=== PATIENT | female | born 1985 | race Caucasian/White ===

== ENCOUNTER 2017-04-18 16:39 | Emergency (ER) | payer MEDICAID ==
[~2017-04-18] VITALS: Ht 162.6 cm; Wt 121.8 kg
[~2017-04-18 16:39] MED LIST: DIAZ5TAB PO; HYDR-565 PO; KETO10TA2 PO; OXYC-145 PO; PHEN-716 PO
[2017-04-18] MEDS ORDERED: LEVO500T2 PO (20:30)
[2017-04-18] MEDS ORDERED: levoFLOXACIN 750MG TABLET PO ONE (20:30)
[2017-04-18 20:38] VITALS: BP 126/74
== END 2017-04-18 20:39 | disposition home or self-care (01) ==
LOC: ER 16:40
DX: J18.9 Pneumonia, unspecified organism (principal); G43.909 Migraine, unspecified, not intractable, without status migrainosus; F12.10 Cannabis abuse, uncomplicated; Z87.442 Personal history of urinary calculi; Z90.49 Acquired absence of other specified parts of digestive tract; Z88.1 Allergy status to other antibiotic agents; Z91.040 Latex allergy status; Z79.899 Other long term (current) drug therapy
CPT/HCPCS: 71045; 99283

== ENCOUNTER 2018-05-15 14:35 | Outpatient (CLI) | payer MEDICAID ==
[~2018-05-15 14:35] MED LIST changes: +HYDR-4353 PO; -HYDR-565 PO
== END 2018-05-15 23:59 | disposition home or self-care (01) ==
LOC: RAD 14:35
PROVIDERS: ATTEND Physician Assistant
DX: R55 Syncope and collapse (principal)
CPT/HCPCS: 95816

== ENCOUNTER 2018-08-18 01:32 | Emergency (ER) | payer MEDICAID ==
[~2018-08-18] VITALS: Ht 162.6 cm; Wt 80.9 kg
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
[2018-08-18] MEDS ORDERED: iohexol 350MG/ML 100ml bottle IV ONE (02:30)
[2018-08-18] MEDS ORDERED: LORazepam 2 mg/ml vial IV ONE (02:35)
[2018-08-18] MEDS ORDERED: baclofen 10mg tablet PO PRN (04:30)
[2018-08-18] MEDS ORDERED: AMOX500C2 PO (04:37)
[2018-08-18 04:42] VITALS: BP 119/77
== END 2018-08-18 04:55 | disposition home or self-care (01) ==
LOC: ER 01:33
DX: K04.7 Periapical abscess without sinus (principal); M54.2 Cervicalgia; R49.0 Dysphonia; Y04.2XXA Assault by strike against or bumped into by another person, initial encounter; Y93.89 Activity, other specified; Y92.89 Other specified places as the place of occurrence of the external cause; Y99.8 Other external cause status
CPT/HCPCS: 70450; 70498; 96374; 99284; J2060; Q9967

== ENCOUNTER 2018-08-24 20:39 | Emergency (ER) | payer MEDICAID ==
[~2018-08-24] VITALS: Ht 162.6 cm; Wt 79.1 kg
[~2018-08-24 20:39] MED LIST changes: +AMOX500C2 PO
[2018-08-24 21:28] LABS: BASOPHILS # (AUTO) 0.1 X10'3 (0-0.2); BASOPHILS % (AUTO) 0.5 % (0-1); EOSINOPHILS # (AUTO) 0.1 X10'3 (0-0.9); EOSINOPHILS % (AUTO) 1.1 % (0-6); HEMATOCRIT 36.7 % (35.0-45.0); HEMOGLOBIN 12.5 g/dl (12.0-16.0); LYMPHOCYTES # (AUTO) 4.1 X10'3 (1.1-4.8); LYMPHOCYTES % (AUTO) 38.8 % (21-51); MEAN CORPUSCULAR HEMOGLOBIN 29.4 PG (27.0-31.0); MEAN CORPUSCULAR HGB CONC 34.1 g/dL (33.0-36.5); MEAN CORPUSCULAR VOLUME 86.2 FL (78-98); MEAN PLATELET VOLUME 9.1 FL (7.4-10.4); MONOCYTES # (AUTO) 0.9 X10'3 (0-0.9); MONOCYTES % (AUTO) 8.3 % (2-12); NEUTROPHILS # (AUTO) 5.4 X10'3 (1.8-7.7); NEUTROPHILS % (AUTO) 51.3 % (42-75); PLATELET COUNT 325 X10'3 (140-440); RED BLOOD COUNT 4.26 X10'6 (4.20-5.60); RED CELL DISTRIBUTION WIDTH 13.5 % (11.5-14.5); WHITE BLOOD COUNT 10.6 X10'3 (4.5-11.0)
[2018-08-24] MEDS ORDERED: normal saline 1000ML IV soln IVB ONE (21:45)
[2018-08-24 21:47] LABS: ALANINE AMINOTRANSFERASE 23 U/L (12-78); ALBUMIN/GLOBULIN RATIO 1.1 (1.1-1.5); ALKALINE PHOSPHATASE 67 IU/L (46-116); ANION GAP 8 (8-16); ASPARTATE AMINO TRANSFERASE 10 U/L (10-37); BILIRUBIN,TOTAL 0.4 MG/DL (0.1-1.0); BLOOD UREA NITROGEN 11 MG/DL (7-18); BUN/CREATININE RATIO 15.5 (6.6-38.0); CALCIUM 9.6 MG/DL (8.5-10.1); CHLORIDE 104 MMOL/L (99-107); CREATININE 0.71 MG/DL (0.40-0.90); GLUCOSE 89 MG/DL (70-104); MAGNESIUM 1.8 MG/DL (1.5-2.4); POTASSIUM 3.6 MMOL/L (3.5-5.1); SODIUM 138 MMOL/L (135-145); TOTAL CARBON DIOXIDE 26.2 MMOL/L (24-32); TOTAL PROTEIN 7.5 G/DL (6.4-8.2); eGFR > 90 ML/MIN
--- NOTE | 2018-08-24 22:27 | NUR ---
LITER #2 STARTED. PT NAD. MOM AT BS.
--- NOTE | 2018-08-24 22:28 | NUR ---
GAVE HER ICE WATER TO DRINK FOR PO CHALLENGE.
[2018-08-24 23:06] VITALS: BP 130/73
[2018-08-24] MEDS ORDERED: VANC250C12 PO (23:16)
== END 2018-08-24 23:28 | disposition home or self-care (01) ==
LOC: ER 20:40
DX: E86.0 Dehydration (principal); G43.909 Migraine, unspecified, not intractable, without status migrainosus; F12.90 Cannabis use, unspecified, uncomplicated; Z91.040 Latex allergy status; Z88.1 Allergy status to other antibiotic agents; Z79.2 Long term (current) use of antibiotics; Z79.899 Other long term (current) drug therapy; Z87.442 Personal history of urinary calculi; Z90.49 Acquired absence of other specified parts of digestive tract; Z98.890 Other specified postprocedural states
CPT/HCPCS: 36415; 71045; 80053; 83735; 83880; 84484; 85025; 93005; 96360; 99284; J7030

== ENCOUNTER 2019-12-30 17:37 | Emergency (ER) | payer MEDICAID ==
[~2019-12-30] VITALS: Ht 162.6 cm; Wt 90.4 kg
[~2019-12-30 17:37] MED LIST changes: -AMOX500C2 PO; -DIAZ5TAB PO; -HYDR-4353 PO; -KETO10TA2 PO; -OXYC-145 PO; -PHEN-716 PO; +VANC250C12 PO
[2019-12-30 17:49] VITALS: BP 107/66
[2019-12-30] MEDS ORDERED: CLIN-15 PO (19:03)
[2019-12-30] MEDS ORDERED: IBUP-1984 PO (19:03)
== END 2019-12-30 19:12 | disposition home or self-care (01) ==
LOC: ER 17:38
DX: K04.7 Periapical abscess without sinus (principal); J32.0 Chronic maxillary sinusitis; G43.909 Migraine, unspecified, not intractable, without status migrainosus; F12.90 Cannabis use, unspecified, uncomplicated; Z90.49 Acquired absence of other specified parts of digestive tract; Z98.61 Coronary angioplasty status; Z90.89 Acquired absence of other organs; Z98.890 Other specified postprocedural states; Z72.89 Other problems related to lifestyle; Z79.2 Long term (current) use of antibiotics; Z88.8 Allergy status to other drugs, medicaments and biological substances; Z79.899 Other long term (current) drug therapy
CPT/HCPCS: 99283

== ENCOUNTER 2020-03-11 11:36 | Emergency (ER) | payer MEDICAID ==
[~2020-03-11] VITALS: Ht 162.6 cm; Wt 93.0 kg
[2020-03-11 11:41] VITALS: BP 128/51
[2020-03-11] MEDS ORDERED: PRED20TA PO (12:26)
[2020-03-11] MEDS ORDERED: FAMO20TA47 PO (12:26)
== END 2020-03-11 12:45 | disposition home or self-care (01) ==
LOC: ER 11:37
DX: L23.9 Allergic contact dermatitis, unspecified cause (principal); G43.909 Migraine, unspecified, not intractable, without status migrainosus; F12.90 Cannabis use, unspecified, uncomplicated; Z87.442 Personal history of urinary calculi; Z90.89 Acquired absence of other organs; Z90.49 Acquired absence of other specified parts of digestive tract; Z98.890 Other specified postprocedural states; Z98.51 Tubal ligation status; Z72.89 Other problems related to lifestyle; Z88.1 Allergy status to other antibiotic agents; Z91.040 Latex allergy status; Z79.2 Long term (current) use of antibiotics; Z79.899 Other long term (current) drug therapy
CPT/HCPCS: 99283

== ENCOUNTER 2020-08-12 16:06 | Emergency (ER) | payer MEDICAID ==
[~2020-08-12] VITALS: Ht 165.1 cm; Wt 97.1 kg
[~2020-08-12 16:06] MED LIST changes: +FAMO20TA47 PO
[2020-08-12] MEDS ORDERED: CEPH-585 PO (17:51)
[2020-08-12 17:53] VITALS: BP 101/65
== END 2020-08-12 17:54 | disposition home or self-care (01) ==
LOC: ER 16:06
DX: L73.9 Follicular disorder, unspecified (principal); G43.909 Migraine, unspecified, not intractable, without status migrainosus; F12.90 Cannabis use, unspecified, uncomplicated; Z87.442 Personal history of urinary calculi; Z90.49 Acquired absence of other specified parts of digestive tract; Z98.890 Other specified postprocedural states; Z90.89 Acquired absence of other organs; Z98.51 Tubal ligation status; Z72.89 Other problems related to lifestyle; Z88.1 Allergy status to other antibiotic agents; Z91.040 Latex allergy status; Z79.899 Other long term (current) drug therapy
CPT/HCPCS: 99283

== ENCOUNTER 2024-02-25 16:18 | Emergency (ER) | payer MEDICAID ==
[~2024-02-25] VITALS: Ht 165.1 cm; Wt 118.2 kg
[2024-02-25 16:19] VITALS: BP 146/89; PULSE 67; TEMP 97.5; O2SAT 99
[2024-02-25] MEDS ORDERED: CEPH-585 PO (17:46)
[2024-02-25] MEDS: cephalexin 250mg capsule PO ONE (18:08)
[2024-02-25 18:15] VITALS: RESP 18
== END 2024-02-25 18:16 | disposition home or self-care (01) ==
LOC: ER 16:18
DX: S61.215A Laceration without foreign body of left ring finger without damage to nail, initial encounter (principal); L03.012 Cellulitis of left finger; F12.90 Cannabis use, unspecified, uncomplicated; Z91.041 Radiographic dye allergy status; Z91.040 Latex allergy status; Z90.49 Acquired absence of other specified parts of digestive tract; Z90.89 Acquired absence of other organs; Z98.51 Tubal ligation status; Z98.84 Bariatric surgery status; W45.8XXA Other foreign body or object entering through skin, initial encounter; Y93.89 Activity, other specified; Y92.89 Other specified places as the place of occurrence of the external cause; Y99.8 Other external cause status
CPT/HCPCS: 99283

== ENCOUNTER 2024-05-12 16:30 | Outpatient (CLI) | payer BC, MEDICAID ==
[~2024-05-12 16:30] MED LIST changes: +CEPH-585 PO
[2024-05-12 16:50] LABS: BASOPHILS # (AUTO) 0.1 X10'3 (0-0.2); BASOPHILS % (AUTO) 0.9 % (0-1); EOSINOPHILS # (AUTO) 0.2 X10'3 (0-0.9); HEMATOCRIT 39.8 % (35.0-45.0); LYMPHOCYTES # (AUTO) 3.2 X10'3 (1.1-4.8); LYMPHOCYTES % (AUTO) 39.4 % (21-51); MEAN CORPUSCULAR HEMOGLOBIN 29.4 PG (27.0-31.0); MEAN CORPUSCULAR HGB CONC 32.7 g/dL (33.0-36.5); MEAN CORPUSCULAR VOLUME 89.9 FL (78-98); MEAN PLATELET VOLUME 8.8 FL (7.4-10.4); MONOCYTES # (AUTO) 0.6 X10'3 (0-0.9); MONOCYTES % (AUTO) 7.1 % (2-12); NEUTROPHILS % (AUTO) 49.6 % (42-75); PLATELET COUNT 309 X10'3 (140-440); RED BLOOD COUNT 4.43 X10'6 (4.20-5.60); RED CELL DISTRIBUTION WIDTH 13.9 % (11.5-14.5); WHITE BLOOD COUNT 8.1 X10'3 (4.5-11.0)
== END 2024-05-12 23:59 | disposition home or self-care (01) ==
LOC: RAD 16:30
PROVIDERS: ATTEND Specialist
DX: N93.8 Other specified abnormal uterine and vaginal bleeding (principal)
CPT/HCPCS: 36415; 85025

== ENCOUNTER 2024-06-01 10:11 | Day surgery (SDC) | payer BC, MEDICAID ==
[2024-05-25 10:10] LABS: BASOPHILS # (AUTO) 0.1 X10'3 (0-0.2); BASOPHILS % (AUTO) 1.9 % (0-1); EOSINOPHILS # (AUTO) 0.2 X10'3 (0-0.9); EOSINOPHILS % (AUTO) 2.8 % (0-6); LYMPHOCYTES # (AUTO) 2.4 X10'3 (1.1-4.8); LYMPHOCYTES % (AUTO) 33.2 % (21-51); MEAN CORPUSCULAR HGB CONC 33.4 g/dL (33.0-36.5); MEAN CORPUSCULAR VOLUME 89.9 FL (78-98); MEAN PLATELET VOLUME 8.7 FL (7.4-10.4); MONOCYTES # (AUTO) 0.6 X10'3 (0-0.9); MONOCYTES % (AUTO) 8.7 % (2-12); NEUTROPHILS # (AUTO) 3.8 X10'3 (1.8-7.7); NEUTROPHILS % (AUTO) 53.4 % (42-75); PRE OP HEMATOCRIT 39.6 % (35.0-45.0); PRE OP HEMOGLOBIN 13.2 g/dL (12.0-16.0); PRE OP PLATELET COUNT 337 X10'3 (140-440); PRE OP WHITE BLOOD COUNT 7.1 10'3 (4.8-10.8)
[2024-05-25 10:32] LABS: ALBUMIN 3.5 G/DL (3.4-5.0); ALKALINE PHOSPHATASE 72 IU/L (46-116); BLOOD UREA NITROGEN 9 MG/DL (7-18); BUN/CREATININE RATIO 14.3 (10.0-20.0); CALCIUM 8.9 MG/DL (8.5-10.1); CHLORIDE 107 MMOL/L (99-107); CREATININE 0.63 MG/DL (0.40-0.90); PRE OP ALT 31 U/L (30-65); PRE OP ANION GAP 4 (8-16); PRE OP AST 13 U/L (10-37); PRE OP BILIRUB, TOTAL 0.3 MG/DL (0.0-1.0); PRE OP GLUCOSE 74 MG/DL (70-104); PRE OP POTASSIUM 4.5 MMOL/L (3.4-5.1); PRE OP SODIUM 143 MMOL/L (135-145); TOTAL CARBON DIOXIDE 31.9 MMOL/L (24-32); TOTAL PROTEIN 6.9 G/DL (6.4-8.2); eGFR > 90 ML/MIN
[~2024-06-01] VITALS: Ht 162.6 cm; Wt 126.0 kg
[2024-06-01] VITALS (8 sets, daily range): BP systolic 111–136; BP diastolic 68–84; PULSE 59–77; RESP 9–16; TEMP 98; O2SAT 96–100
[2024-06-01] MEDS: ceFOXitin sod/dextrose 2g/50ml 50 ML IV ONE (05:30)
[~2024-06-01 10:11] MED LIST changes: +BUPIVAcaine HCl 0.25%/EPInephrine 1:200,000 inj. 10 ML VIAL ONE; +BUPR-561 PO; -CEPH-585 PO; +CHOL100025 PO; -FAMO20TA47 PO; +FERR159T2 PO; +LEVO25TA7 PO; +MULT-1085 PO; -VANC250C12 PO
[2024-06-01] MEDS: ringers solution, lacted 1,000 ML IV SCH (11:05)
[2024-06-01] MEDS: famotidine 20mg tablet PO ONE (11:05)
[2024-06-01 11:18] LABS: PREOP URINE HCG NEGATIVE (NEGATIVE)
[2024-06-01] MEDS ORDERED: fentaNYL/PF 50MCG/1 ML 2ML syringe ONE (11:35)
[2024-06-01] MEDS ORDERED: midazolam 1 mg/ML 2ml injection ONE (11:35)
[2024-06-01] MEDS ORDERED: propofol inj 20 ML IV ONE (11:35)
[2024-06-01] MEDS ORDERED: rocuronium 10mg/ml inj IV ONE (11:36)
[2024-06-01] MEDS ORDERED: sevoflurane 250ml liquid IH ONE (12:01)
[2024-06-01] MEDS ORDERED: dexamethasone sod phosphate 4mg/ml inj. ONE (12:28)
[2024-06-01] MEDS ORDERED: ondansetron/PF 4mg/2ml inj ONE (12:28)
[2024-06-01] MEDS ORDERED: sugammadex 200mg/2ml injection IV ONE (12:36)
[2024-06-01] MEDS ORDERED: ringers solution, lacted 1,000 ML IV SCH (12:40)
[2024-06-01] MEDS ORDERED: proCHLORperazine 10 MG/2 ml inj IV PRN (12:40)
[2024-06-01] MEDS ORDERED: morphine 4 MG/ML inj SYRINge IV PRN (12:40)
[2024-06-01] MEDS ORDERED: meperidine/PF 25mg/ml syringe IV PRN ×3 (12:40)
[2024-06-01] MEDS ORDERED: ondansetron/PF 4mg/2ml inj IV PRN (12:40)
[2024-06-01] MEDS ORDERED: morphine 2 MG/ML inj. syringe IV PRN (12:40)
== END 2024-06-01 13:49 | disposition home or self-care (01) ==
LOC: PAS 10:11
PROVIDERS: ATTEND Specialist
DX: Z30.432 Encounter for removal of intrauterine contraceptive device (principal); N93.8 Other specified abnormal uterine and vaginal bleeding; G43.909 Migraine, unspecified, not intractable, without status migrainosus; E66.01 Morbid (severe) obesity due to excess calories; Z98.51 Tubal ligation status; Z98.84 Bariatric surgery status; Z98.891 History of uterine scar from previous surgery; Z90.49 Acquired absence of other specified parts of digestive tract; Z98.890 Other specified postprocedural states; Z91.040 Latex allergy status; Z88.1 Allergy status to other antibiotic agents; Z91.048 Other nonmedicinal substance allergy status; Z79.890 Hormone replacement therapy; Z79.899 Other long term (current) drug therapy; Z83.3 Family history of diabetes mellitus
CPT/HCPCS: 36415; 58301; 58353; 80053; 81025; 82948; 85025; 86885; 86900; 86901; 93005; J0694; J1100; J2003; J2250; J2405; J2704; J3010; J3490; J7030; J7120; Z7506; Z7512; A4338; A4355; A4618; A4649; A6258; A7000

== ENCOUNTER 2024-10-28 07:36 | Outpatient (CLI) | payer BC, MEDICAID ==
[~2024-10-28 07:36] MED LIST changes: -BUPIVAcaine HCl 0.25%/EPInephrine 1:200,000 inj. 10 ML VIAL ONE; -BUPR-561 PO; +BUPR-726 PO
[2024-10-28 08:21] LABS: MEAN PLATELET VOLUME 9.2 FL (7.4-10.4); RED CELL DISTRIBUTION WIDTH 14.0 % (11.5-14.5)
[2024-10-28 08:41] LABS: CHOL/HDL RATIO 2.4 (0.00-4.99); CREATININE 0.73 MG/DL (0.40-0.90); LDL CHOLESTEROL 83 MG/DL (50-100); TOTAL CARBON DIOXIDE 27.0 MMOL/L (24-32); eGFR 89 ML/MIN
[2024-10-29 09:12] LABS: THIIODOTHRONINE, FREE, SERUM 2.8 pg/mL (2.0-4.4); THYROID PEROXIDASE AB 24.0 IU/mL (0-34); THYROXINE (T4) 7.0 ug/dL (4.5-12.0)
[2024-11-01 11:11] LABS: ANTITHYROGLOBULIN AB 1.8 IU/mL (0.0-0.9)
== END 2024-10-28 23:59 | disposition home or self-care (01) ==
LOC: LAB 07:36
PROVIDERS: ATTEND Nurse Practitioner Family
DX: E07.9 Disorder of thyroid, unspecified (principal); Z76.89 Persons encountering health services in other specified circumstances; R73.03 Prediabetes; R53.82 Chronic fatigue, unspecified; E28.2 Polycystic ovarian syndrome
CPT/HCPCS: 36415; 80053; 80061; 83036; 84436; 84443; 84481; 85025; 86376; 86800

== ENCOUNTER 2024-12-06 10:01 | Outpatient (CLI) | payer BC ==
[2024-12-06 12:52] LABS: MEAN PLATELET VOLUME 8.8 FL (7.4-10.4); RED CELL DISTRIBUTION WIDTH 13.8 % (11.5-14.5)
[2024-12-06 13:23] LABS: CREATININE 0.72 MG/DL (0.40-0.90); TOTAL CARBON DIOXIDE 28.0 MMOL/L (24-32); eGFR 90 ML/MIN
[2024-12-08 11:03] LABS: ESTRADIOL 135.0 pg/mL (.); FSH, SERUM 7.1 mIU/mL (.); LUTEINIZING HORMONE 6.5 mIU/mL (.); PROLACTIN 6.8 ng/mL (4.8-33.4)
== END 2024-12-06 23:59 | disposition home or self-care (01) ==
LOC: LAB 10:01
PROVIDERS: ATTEND Specialist
DX: R23.2 Flushing (principal)
CPT/HCPCS: 36415; 80053; 82670; 83001; 83002; 84146; 84439; 84443; 85025